=== PATIENT | male | born 1970 | race Hispanic/Latino ===

== ENCOUNTER → 2024-03-02 | Outpatient (CLI) | payer OTHER | END | disposition home or self-care (01) | LOC: RAH 13:33 | PROVIDERS: ATTEND Family Medicine | DX: Z11.1 Encounter for screening for respiratory tuberculosis (principal); J98.4 Other disorders of lung; J47.9 Bronchiectasis, uncomplicated; R91.8 Other nonspecific abnormal finding of lung field | CPT/HCPCS: 71250 ==